=== PATIENT | female | born 1990 | race Caucasian/White ===

== ENCOUNTER 2017-08-09 17:55 | Emergency (ER) | payer BC, MEDICAID ==
[~2017-08-09] VITALS: Ht 157.5 cm; Wt 65.6 kg
[~2017-08-09 17:55] MED LIST: ASCO500T8 PO; BUTA-5 PO; CALC300T5 PO; IBUP200C8 PO; MIGRAINE MEDICINE; PT WILL BRING LIST
[2017-08-09] MEDS ORDERED: SODIUM CHLORIDE 0.9% 1,000ML IVBOLUS ONE (19:00)
[2017-08-09] MEDS ORDERED: SODIUM CHLORIDE FLUSH 10ML SYR IVF ONE (19:00)
[2017-08-09] MEDS ORDERED: METOCLOPRAMIDE 5 MG/ML, 2ML IVPush ONE (19:00)
[2017-08-09] MEDS ORDERED: DIPHENHYDRAMINE 50 MG/ML, 1ML IVPush ONE (19:00)
[2017-08-09 19:10] LABS: HEMATOCRIT 40.7 % (34.6-47.8); HEMOGLOBIN 13.9 g/dL (11.7-16.4); WHITE BLOOD COUNT 10.5 x10^3/uL (3.4-10)
[2017-08-09] MEDS ORDERED: DIPHENHYDRAMINE 50 MG/ML, 1ML ONE (19:10)
[2017-08-09] MEDS ORDERED: METOCLOPRAMIDE 5 MG/ML, 2ML ONE (19:10)
[2017-08-09 19:21] LABS: BLOOD UREA NITROGEN 8 mg/dL (7-18)
[2017-08-09 19:35] LABS: ASPARTATE AMINO TRANSFERASE 10 U/L (15-37)
[2017-08-09 21:00] VITALS: BP 113/64
== END 2017-08-09 21:05 | disposition home or self-care (01) ==
LOC: ED 18:46
DX: O26.892 Other specified pregnancy related conditions, second trimester (principal); O21.0 Mild hyperemesis gravidarum; Z3A.21 21 weeks gestation of pregnancy; R55 Syncope and collapse; R11.0 Nausea
CPT/HCPCS: 36415; 80053; 81003; 84703; 85025; 93005; 96374; 96375; 99285; J1200; J2765; J7030

== ENCOUNTER 2017-09-07 20:55 | Emergency (ER) | payer BC ==
[~2017-09-07] VITALS: Ht 160 cm; Wt 63.8 kg
[2017-09-07] MEDS ORDERED: SODIUM CHLORIDE FLUSH 10ML SYR IVF ONE (22:30)
[2017-09-07] MEDS ORDERED: ONDANSETRON 2MG/ML, 2ML IVPush ONE (22:30)
[2017-09-07] MEDS ORDERED: SODIUM CHLORIDE 0.9% 1,000ML IVBOLUS ONE (22:30)
[2017-09-07 22:52] LABS: HEMATOCRIT 43.4 % (34.6-47.8); HEMOGLOBIN 14.9 g/dL (11.7-16.4); WHITE BLOOD COUNT 10.7 x10^3/uL (3.4-10)
[2017-09-07] MEDS ORDERED: ONDANSETRON 2MG/ML, 2ML ONE (23:00)
[2017-09-07 23:05] LABS: ASPARTATE AMINO TRANSFERASE 10 U/L (15-37); BLOOD UREA NITROGEN 9 mg/dL (7-18)
[2017-09-07] MEDS ORDERED: CEFTRIAXONE PMX 1GM/50ML 50 ML ONE (23:49)
[2017-09-08] MEDS ORDERED: METOCLOPRAMIDE 5 MG/ML, 2ML IVPush ONE
[2017-09-08] MEDS ORDERED: ACETAMINOPHEN 325 MG TABLET ONE
[2017-09-08] MEDS ORDERED: SODIUM CHLORIDE 0.9% 1,000ML IVBOLUS ONE
[2017-09-08] MEDS ORDERED: METOCLOPRAMIDE 5 MG/ML, 2ML ONE
[2017-09-08] MEDS ORDERED: CEFTRIAXONE PMX 1GM/50ML 50 ML IV ONE
[2017-09-08] MEDS ORDERED: ACETAMINOPHEN 325 MG TABLET PO ONE
[2017-09-08] MEDS ORDERED: PROMETHAZINE 25 MG/ML, 1ML ONE (00:12)
[2017-09-08] MEDS ORDERED: PROMETHAZINE 25 MG/ML, 1ML IM STA (00:19)
[2017-09-08 01:18] VITALS: BP 109/75
== END 2017-09-08 01:18 | disposition home or self-care (01) ==
LOC: ED 22:55
DX: O21.0 Mild hyperemesis gravidarum (principal); O23.42 Unspecified infection of urinary tract in pregnancy, second trimester; Z3A.21 21 weeks gestation of pregnancy
CPT/HCPCS: 36415; 80053; 81001; 85025; 87086; 96361; 96365; 96372; 96375; 99284; J0696; J2405; J2550; J7030

== ENCOUNTER 2021-02-09 12:53 | Emergency (ER) | payer BC ==
[~2021-02-09] VITALS: Ht 157.5 cm; Wt 85.2 kg
[~2021-02-09 12:53] MED LIST changes: +DOCU-131 PO; +HYDR-1067 PO; +IBUP-1222 PO; +IBUP-1223 PO
--- NOTE | 2021-02-09 13:57 | NUR ---
MALLORY RN: PT C/O PALPITATIONS. PT ALSO REPORTS SHE IS 17 WEEKS WITH HER 3RD . [employer] ON. SINUS TACHY NOTED. AT BEDSIDE. DR BERG IN ROOM. VS STABLE. CALL LIGHT IN PLACE.
[2021-02-09] MEDS ORDERED: SODIUM CHLORIDE 0.9% 1,000ML IVBOLUS ONE (14:00)
[2021-02-09] MEDS ORDERED: SODIUM CHLORIDE FLUSH 10ML SYR IVF ONE (14:00)
[2021-02-09] MEDS ORDERED: SODIUM CHLORIDE 0.9% 1,000 ML IV ONE (14:00)
[2021-02-09] MEDS ORDERED: PREN1TAB28 PO (14:24)
[2021-02-09 14:44] LABS: BASOPHILS % (AUTO) 0 % (0-1); EOSINOPHILS % (AUTO) 1 % (1-7); LYMPHOCYTES % (AUTO) 15 % (22-44); MEAN CORPUSCULAR HEMOGLOBIN 28.4 pg (27.0-34.8); MEAN CORPUSCULAR HGB CONC 33.9 g/dL (32.4-35.8); MEAN PLATELET VOLUME 7.7 fL (7.4-10.4); MONOCYTES % (AUTO) 4 % (2-9); NEUTROPHILS % (AUTO) 80 % (42-75); PLATELET COUNT 342 x10^3/uL (130-400); RED BLOOD COUNT 4.94 x10^6/uL (3.82-5.3); RED CELL DISTRIBUTION WIDTH 13.7 % (9.6-15.2)
[2021-02-09 14:47] LABS: MICROSCOPIC INDICATED
[2021-02-09 14:49] LABS: MD NO
[2021-02-09 14:52] LABS: ANION GAP 10 mmol/L (5-15); CALCIUM 9.2 mg/dL (8.5-10.1); CHLORIDE 103 mmol/L (98-107); CREATININE 0.51 mg/dL (0.55-1.02)
[2021-02-09 14:53] LABS: ALANINE AMINOTRANSFERASE 31 U/L (12-78); ALBUMIN 3.3 g/dL (3.4-5.0)
[2021-02-09 15:03] LABS: ALKALINE PHOSPHATASE 47 U/L (45-117); BILIRUBIN,TOTAL 0.3 mg/dL (0.2-1.0); T4 (THYROXINE) 11.4 mcg/dL (4.8-13.9); TOTAL PROTEIN 7.8 g/dL (6.4-8.2); TROPONIN I < 0.015 ng/mL (0.000-0.045)
--- NOTE | 2021-02-09 15:32 | NUR ---
PT IS RESTING, DENIES CP OR PALPIATIONS AT THIS TIME. VSS. FAMILY AT BEDSIDE.
[2021-02-09] MEDS ORDERED: OMNIPAQUE 350 MG/ML, 100ML BOTTLE ONE (15:45)
--- NOTE | 2021-02-09 15:54 | NUR ---
PT AMBULATED TO BATHROOM W STEADY GAIT.
--- NOTE | 2021-02-09 16:48 | NUR ---
MD BERG AT BEDSIDE DISCUSSING POC. CONSULTING CARDIOLOGY. PT REPOSTIONED IN BED. VSS.
[2021-02-09 16:56] VITALS: BP 112/68
--- NOTE | 2021-02-09 17:02 | NUR ---
PROVIDED WATER AND CRACKERS.
--- NOTE | 2021-02-09 17:18 | NUR ---
PT HAS CO HIGH HR AND PALPITATIONS. VSS. TO BE CONSULTED BY CARDIOLOGY.
--- NOTE | 2021-02-09 17:54 | NUR ---
Patient/Caregiver given discharge instructions and they have confirmed that they understand the instructions. Patient ambulatory with steady gait.
== END 2021-02-09 18:39 | disposition home or self-care (01) ==
LOC: ED 16:40
DX: O26.892 Other specified pregnancy related conditions, second trimester (principal); R00.0 Tachycardia, unspecified; R00.2 Palpitations; R06.02 Shortness of breath; Z3A.17 17 weeks gestation of pregnancy
CPT/HCPCS: 36415; 71275; 80053; 81001; 83735; 84436; 84443; 84484; 85025; 93005; 96360; 96361; 99285; J7030; Q9967

== ENCOUNTER 2021-06-08 13:45 | Inpatient (IN) | payer BC ==
[~2021-06-08] VITALS: Ht 157.5 cm; Wt 90.5 kg
[~2021-06-08 13:45] MED LIST changes: -HYDR-1067 PO; +HYDR-2214 PO; +PREN1TAB28 PO
[2021-06-08] MEDS ORDERED: MAGNESIUM SULF. PMX 20GM/500ML 500 ML IV SCH (15:00)
[2021-06-08] MEDS ORDERED: PLEASE ENTER HEIGHT AND WEIGHT MC SCH (16:00)
[2021-06-08 16:11] VITALS: BP 127/76
[2021-06-08] MEDS ORDERED: LACTATED RINGERS 1,000 ML IV SCH (17:00)
[2021-06-08] MEDS: ACETAMINOPHEN 325 MG TABLET PO PRN ×2 (18:05→23:25)
[2021-06-08] MEDS: ASPIRIN 81 MG TABLET EC PO SCH (19:12)
[2021-06-08] MEDS ORDERED: OMNIPAQUE 350 MG/ML, 100ML BOTTLE ONE (21:00)
[2021-06-08 22:41] LABS: FIO2 RA %
[2021-06-09 00:13] LABS: FIO2 RA %
[2021-06-09 04:38] VITALS: BP 107/55
[2021-06-09 06:21] LABS: BASOPHILS % (AUTO) 1 % (0-1); EOSINOPHILS % (AUTO) 0 % (1-7); LYMPHOCYTES % (AUTO) 8 % (22-44); MEAN CORPUSCULAR HEMOGLOBIN 25.3 pg (27.0-34.8); MEAN CORPUSCULAR HGB CONC 32.7 g/dL (32.4-35.8); MEAN PLATELET VOLUME 7.8 fL (7.4-10.4); MONOCYTES % (AUTO) 3 % (2-9); NEUTROPHILS % (AUTO) 88 % (42-75); PLATELET COUNT 345 x10^3/uL (130-400); RED BLOOD COUNT 4.04 x10^6/uL (3.82-5.3); RED CELL DISTRIBUTION WIDTH 15.4 % (9.6-15.2)
[2021-06-09 06:33] LABS: ALBUMIN 2.4 g/dL (3.4-5.0); ANION GAP 8 mmol/L (5-15); CALCIUM 9.2 mg/dL (8.5-10.1); CHLORIDE 108 mmol/L (98-107)
[2021-06-09 06:49] LABS: ALANINE AMINOTRANSFERASE 17 U/L (12-78); ALKALINE PHOSPHATASE 75 U/L (45-117); BILIRUBIN,TOTAL 0.3 mg/dL (0.2-1.0); TOTAL PROTEIN 6.4 g/dL (6.4-8.2)
[2021-06-09] MEDS ORDERED: DOCUSATE 100 MG CAPSULE ONE (08:10)
[2021-06-09] MEDS: DOCUSATE 100 MG CAPSULE PO SCH ×2 (08:12→20:37)
[2021-06-09] MEDS: SODIUM CHLORIDE FLUSH 3ML SYRINGE IVF SCH ×2 (09:22→20:37)
[2021-06-09] MEDS ORDERED: BETAMETHASONE 6 MG/ML, 5ML IM ONE (11:30)
[2021-06-09] MEDS: INSULIN LISPRO 100 UNITS/ML, PEN SQ-INSULIN SCH ×2 (12:48→19:14)
[2021-06-09 12:54] LABS: % IRON SATURATION 7 % (20-55); IRON LEVEL 37 mcg/dL (50-170); TOTAL IRON BINDING CAPACITY 568 mcg/dL (250-450)
[2021-06-09] MEDS ORDERED: GUAIFENESIN 100 MG/5 ML, 10ML UDC PO PRN (13:00)
[2021-06-09 13:17] LABS: AMPHETAMINE SCREEN, URINE Negative (Negative); BARBITURATE SCREEN, URINE Negative (Negative); BENZODIAZEPINE SCREEN, URINE Negative (Negative); CANNABINOID SCREEN, URINE Negative (Negative); COCAINE SCREEN, URINE Negative (Negative); METHADONE SCREEN, URINE Negative (Negative); OPIATE SCREEN, URINE Negative (Negative)
[2021-06-09 13:20] LABS: MICROSCOPIC INDICATED
[2021-06-09] MEDS: CEFTRIAXONE 1,000 MG in DEXTROSE 5% 50 ML IVPB SCH (16:25)
[2021-06-09] MEDS: FERROUS GLUCONATE 324 MG TABLET PO SCH (16:53)
[2021-06-09] MEDS: PRENATAL VIT/IRON/FA 1 EACH TABLET PO SCH (20:36)
[2021-06-09] MEDS: ASPIRIN 81 MG TABLET EC PO SCH (20:37)
[2021-06-09] MEDS ORDERED: INSULIN NPH HUMAN 100 UNIT/ML, 3ML VIAL SQ-INSULIN ONE (22:00)
[2021-06-10 07:18] VITALS: BP 124/71
[2021-06-10] MEDS ORDERED: INSULIN LISPRO 100 UNITS/ML, PEN SQ-INSULIN ONE (07:30)
[2021-06-10] MEDS ORDERED: INSULIN NPH HUMAN 100 UNIT/ML, 3ML VIAL SQ-INSULIN ONE ×2 (07:30→21:00)
[2021-06-10] MEDS: ASPIRIN 81 MG TABLET EC PO SCH (07:51)
[2021-06-10] MEDS: DOCUSATE 100 MG CAPSULE PO SCH ×2 (07:51→21:57)
[2021-06-10] MEDS: SODIUM CHLORIDE FLUSH 3ML SYRINGE IVF SCH ×2 (07:52→20:56)
[2021-06-10] MEDS: FERROUS GLUCONATE 324 MG TABLET PO SCH ×2 (07:52→21:57)
[2021-06-10] MEDS: ACETAMINOPHEN 325 MG TABLET PO PRN (08:36)
[2021-06-10 08:59] LABS: O2 FLOW ROOM AIR L/min
[2021-06-10 09:00] LABS: MEAN CORPUSCULAR HEMOGLOBIN 25.2 pg (27.0-34.8); MEAN CORPUSCULAR HGB CONC 32.9 g/dL (32.4-35.8); MEAN PLATELET VOLUME 7.8 fL (7.4-10.4); PLATELET COUNT 372 x10^3/uL (130-400); RED BLOOD COUNT 4.02 x10^6/uL (3.82-5.3); RED CELL DISTRIBUTION WIDTH 15.6 % (9.6-15.2)
[2021-06-10 09:11] LABS: ANION GAP 8 mmol/L (5-15); CALCIUM 8.8 mg/dL (8.5-10.1); CHLORIDE 108 mmol/L (98-107); CREATININE 0.45 mg/dL (0.55-1.02)
[2021-06-10 09:22] LABS: BAND#(MANUAL) 0.77 x10^3/uL; BANDS%(MANUAL) 4 % (0-7); LYMPHS% (MANUAL) 12 % (22-44); MONOS#(MANUAL) 0.58 x10^3/uL (0.3-2.7); MONOS% (MANUAL) 3 % (2-9); SEG#(MANUAL) 15.55 x10^3/uL (1.8-6.8); SEGS% (MANUAL) 81 % (42-75)
[2021-06-10 09:23] LABS: <PLATELET ESTIMATE> ADEQUATE; <PLT MORPHOLOGY> NORMAL PLT MORPH; ANISOCYTOSIS 1+; MICROCYTOSIS 1+
[2021-06-10] MEDS: CEFTRIAXONE 1,000 MG in DEXTROSE 5% 50 ML IVPB SCH (14:35)
[2021-06-10] MEDS ORDERED: INSULIN LISPRO 100 UNIT/ML, 3ML VIAL SQ-INSULIN ONE (18:00)
[2021-06-10 19:00] VITALS: BP 115/71
[2021-06-10] MEDS: PRENATAL VIT/IRON/FA 1 EACH TABLET PO SCH (21:57)
[2021-06-11 06:29] LABS: FIO2 ROOM AIR %
[2021-06-11 06:32] LABS: BASOPHILS % (AUTO) 1 % (0-1); EOSINOPHILS % (AUTO) 0 % (1-7); LYMPHOCYTES % (AUTO) 15 % (22-44); MEAN CORPUSCULAR HEMOGLOBIN 25.1 pg (27.0-34.8); MEAN CORPUSCULAR HGB CONC 32.6 g/dL (32.4-35.8); MEAN PLATELET VOLUME 7.6 fL (7.4-10.4); MONOCYTES % (AUTO) 6 % (2-9); NEUTROPHILS % (AUTO) 78 % (42-75); PLATELET COUNT 367 x10^3/uL (130-400); RED BLOOD COUNT 4.11 x10^6/uL (3.82-5.3)
[2021-06-11 06:40] LABS: ANION GAP 8 mmol/L (5-15); CALCIUM 8.8 mg/dL (8.5-10.1); CHLORIDE 107 mmol/L (98-107)
[2021-06-11 07:17] VITALS: BP 117/76
[2021-06-11] MEDS: ASPIRIN 81 MG TABLET EC PO SCH (09:16)
[2021-06-11] MEDS: DOCUSATE 100 MG CAPSULE PO SCH ×2 (09:16→21:03)
[2021-06-11] MEDS: FERROUS GLUCONATE 324 MG TABLET PO SCH ×2 (09:16→17:12)
[2021-06-11] MEDS: SODIUM CHLORIDE FLUSH 3ML SYRINGE IVF SCH ×2 (09:21→21:03)
[2021-06-11 10:57] VITALS: BP 119/80
[2021-06-11] MEDS: CEFTRIAXONE 1,000 MG in DEXTROSE 5% 50 ML IVPB SCH (14:47)
[2021-06-11 16:24] VITALS: BP 117/73
[2021-06-11] MEDS: ACETAMINOPHEN 325 MG TABLET PO PRN (19:44)
[2021-06-11] MEDS: PRENATAL VIT/IRON/FA 1 EACH TABLET PO SCH (21:03)
[2021-06-12] MEDS: FERROUS GLUCONATE 324 MG TABLET PO SCH ×2 (07:46→17:13)
[2021-06-12] MEDS: ASPIRIN 81 MG TABLET EC PO SCH (07:46)
[2021-06-12] MEDS ORDERED: FLUCONAZOLE 50 MG TABLET PO ONE (08:00)
[2021-06-12] MEDS: DOCUSATE 100 MG CAPSULE PO SCH ×2 (09:20→20:52)
[2021-06-12] MEDS: SODIUM CHLORIDE FLUSH 3ML SYRINGE IVF SCH ×2 (09:20→20:52)
[2021-06-12 09:22] VITALS: BP 114/67
[2021-06-12] MEDS: ACETAMINOPHEN 325 MG TABLET PO PRN (17:13)
[2021-06-12] MEDS: PRENATAL VIT/IRON/FA 1 EACH TABLET PO SCH (20:52)
[2021-06-13] MEDS: FERROUS GLUCONATE 324 MG TABLET PO SCH ×2 (07:35→21:00)
[2021-06-13] MEDS: ASPIRIN 81 MG TABLET EC PO SCH (07:35)
[2021-06-13] MEDS: SODIUM CHLORIDE FLUSH 3ML SYRINGE IVF SCH ×3 (07:35→21:00)
[2021-06-13] MEDS: DOCUSATE 100 MG CAPSULE PO SCH ×2 (09:00→21:00)
[2021-06-13] MEDS: PRENATAL VIT/IRON/FA 1 EACH TABLET PO SCH (21:00)
[2021-06-14 07:38] LABS: FIO2 ROOM AIR %
[2021-06-14] MEDS: ASPIRIN 81 MG TABLET EC PO SCH (07:46)
[2021-06-14] MEDS: DOCUSATE 100 MG CAPSULE PO SCH (07:46)
[2021-06-14] MEDS: FERROUS GLUCONATE 324 MG TABLET PO SCH ×2 (07:46→17:52)
[2021-06-14] MEDS: SODIUM CHLORIDE FLUSH 3ML SYRINGE IVF SCH (09:00)
[2021-06-14] MEDS: ACETAMINOPHEN 325 MG TABLET PO PRN (17:52)
== END 2021-06-14 20:20 | disposition home or self-care (01) | DRG 831 ==
LOC: LDIP 13:45 → LDOP 13:51 → EDSTATUS 13:56
PROVIDERS: ADMIT Obstetrics & Gynecology; ATTEND Obstetrics & Gynecology
DX: O99.513 Diseases of the respiratory system complicating pregnancy, third trimester (principal); J96.01 Acute respiratory failure with hypoxia; O98.513 Other viral diseases complicating pregnancy, third trimester; E87.4 Mixed disorder of acid-base balance; H53.129 Transient visual loss, unspecified eye; O24.410 Gestational diabetes mellitus in pregnancy, diet controlled; O23.43 Unspecified infection of urinary tract in pregnancy, third trimester; O99.413 Diseases of the circulatory system complicating pregnancy, third trimester; Z20.822 Contact with and (suspected) exposure to COVID-19; O26.893 Other specified pregnancy related conditions, third trimester; Z67.91 Unspecified blood type, Rh negative; Z3A.34 34 weeks gestation of pregnancy; O99.353 Diseases of the nervous system complicating pregnancy, third trimester; G43.109 Migraine with aura, not intractable, without status migrainosus; O13.3 Gestational [pregnancy-induced] hypertension without significant proteinuria, third trimester; B34.8 Other viral infections of unspecified site; O99.013 Anemia complicating pregnancy, third trimester; D50.9 Iron deficiency anemia, unspecified; O99.283 Endocrine, nutritional and metabolic diseases complicating pregnancy, third trimester; J06.9 Acute upper respiratory infection, unspecified; I49.8 Other specified cardiac arrhythmias; I47.9 Paroxysmal tachycardia, unspecified; J44.9 Chronic obstructive pulmonary disease, unspecified; K59.00 Constipation, unspecified; O99.613 Diseases of the digestive system complicating pregnancy, third trimester; O36.5930 Maternal care for other known or suspected poor fetal growth, third trimester, not applicable or unspecified; O69.89X0 Labor and delivery complicated by other cord complications, not applicable or unspecified; Z87.891 Personal history of nicotine dependence
CPT/HCPCS: 36415; 36600; 71046; 71275; 80048; 80053; 80307; 81001; 82565; 82570; 82803; 82947; 82962; 83540; 83550; 83605; 83735; 84145; 84156; 84550; 85025; 86328; 86592; 86850; 86900; 87040; 87070; 87081; 87086; 87205; 87486; 87581; 87633; 87798; 93005; 93306; G0378; J0696; J0702; J1815; Q9967; U0005; U0003

== ENCOUNTER 2021-06-27 04:59 | Inpatient (IN) | payer BC ==
[~2021-06-27] VITALS: Ht 157.5 cm; Wt 91.0 kg
[2021-06-27] MEDS ORDERED: ALUMINUM/MAG/SIMETHICONE 30 ML UDC PO PRN (05:30)
[2021-06-27] MEDS ORDERED: METOCLOPRAMIDE 5 MG/ML, 2ML IVPush PRN (05:30)
[2021-06-27] MEDS ORDERED: CALCIUM CARBONATE 500 MG TAB.CHEW PO PRN (05:30)
[2021-06-27] MEDS ORDERED: FENTANYL PF 100 MCG/2ML IVPush PRN (05:30)
[2021-06-27] MEDS ORDERED: D5%-LACTATED RINGERS 1,000 ML IV SCH (05:30)
[2021-06-27] MEDS ORDERED: ONDANSETRON 2MG/ML, 2ML IVPush PRN ×2 (05:30→09:00)
[2021-06-27] MEDS ORDERED: SODIUM CHLORIDE FLUSH 10ML SYR IVF PRN (05:30)
[2021-06-27] MEDS ORDERED: TERBUTALINE 1 MG/ML, 1ML SQ PRN (05:30)
[2021-06-27] MEDS ORDERED: FENTANYL PF 100 MCG/2ML IV PRN (05:30)
[2021-06-27] MEDS ORDERED: SODIUM CITRATE/CITRIC ACID 30 ML UDC PO PRN (05:30)
[2021-06-27] MEDS ORDERED: OXYTOCIN 30U/ 0.9% NaCL 500ML 500 ML IV ONE (05:30)
[2021-06-27] MEDS ORDERED: OXYTOCIN 30U/ 0.9% NaCL 500ML 500 ML IV PRN (05:30)
[2021-06-27] MEDS ORDERED: TERBUTALINE 1 MG/ML, 1ML IVPush PRN (05:30)
[2021-06-27 05:39] VITALS: BP 114/78
[2021-06-27] MEDS: LACTATED RINGERS 1,000 ML IV SCH ×2 (05:47→07:52)
[2021-06-27 05:51] LABS: BASOPHILS % (AUTO) 0 % (0-1); EOSINOPHILS % (AUTO) 1 % (1-7); LYMPHOCYTES % (AUTO) 18 % (22-44); MEAN CORPUSCULAR HEMOGLOBIN 26.9 pg (27.0-34.8); MEAN CORPUSCULAR HGB CONC 33.6 g/dL (32.4-35.8); MEAN PLATELET VOLUME 8.2 fL (7.4-10.4); MONOCYTES % (AUTO) 4 % (2-9); NEUTROPHILS % (AUTO) 77 % (42-75); PLATELET COUNT 298 x10^3/uL (130-400); RED BLOOD COUNT 4.77 x10^6/uL (3.82-5.3)
[2021-06-27 05:56] LABS: ALANINE AMINOTRANSFERASE 19 U/L (12-78); ALBUMIN 2.5 g/dL (3.4-5.0); ANION GAP 9 mmol/L (5-15); CALCIUM 9.2 mg/dL (8.5-10.1); CHLORIDE 107 mmol/L (98-107); CREATININE 0.49 mg/dL (0.55-1.02)
[2021-06-27] MEDS ORDERED: LIDOCAINE 1%, 20ML ONE (05:56)
[2021-06-27] MEDS ORDERED: MISOPROSTOL 200 MCG TABLET ONE (05:56)
[2021-06-27 05:58] LABS: ALKALINE PHOSPHATASE 82 U/L (45-117); BILIRUBIN,TOTAL 0.3 mg/dL (0.2-1.0); TOTAL PROTEIN 6.7 g/dL (6.4-8.2)
[2021-06-27] MEDS ORDERED: PLEASE ENTER HEIGHT AND WEIGHT MC SCH (06:00)
[2021-06-27] MEDS ORDERED: BUPIVACAINE 0.25% ONE (08:51)
[2021-06-27] MEDS ORDERED: FENTANYL/BUPIV./NS/PF 0 ML EPIDCONT ONE (08:51)
[2021-06-27] MEDS ORDERED: LACTATED RINGERS 1,000 ML IVBOLUS PRN (09:00)
[2021-06-27] MEDS ORDERED: LACTATED RINGERS 1,000 ML IV SCH (09:00)
[2021-06-27] MEDS ORDERED: DIPHENHYDRAMINE 50 MG/ML, 1ML IVPush PRN (09:00)
[2021-06-27] MEDS ORDERED: EPHEDRINE 50 MG/ML, 1ML IVPush PRN (09:00)
[2021-06-27] MEDS ORDERED: FENTANYL/BUPIV./NS/PF 250 ML EPIDCONT SCH (09:00)
[2021-06-27] MEDS ORDERED: NALOXONE 0.4 MG/ML, 1ML IVPush PRN (09:00)
[2021-06-27] MEDS ORDERED: MISOPROSTOL 200 MCG TABLET PR PRN (10:30)
[2021-06-27] MEDS ORDERED: OXYcodone/APAP 5/325MG TABLET PO PRN (10:30)
[2021-06-27] MEDS ORDERED: OXYcodone IR 5MG TABLET PO PRN (10:30)
[2021-06-27] MEDS ORDERED: ONDANSETRON 2MG/ML, 2ML IV PRN (10:30)
[2021-06-27] MEDS ORDERED: SIMETHICONE 80 MG CHEW TAB PO PRN (10:30)
[2021-06-27] MEDS ORDERED: ACETAMINOPHEN 325 MG TABLET PO PRN (10:30)
[2021-06-27] MEDS: OXYTOCIN 30U/ 0.9% NaCL 500ML 500 ML IV SCH ×2 (12:04→20:30)
[2021-06-27] MEDS: IBUPROFEN 600 MG TABLET PO PRN ×2 (13:08→19:29)
[2021-06-27 14:40] VITALS: BP 111/69
[2021-06-27 17:22] LABS: BASOPHILS % (AUTO) 1 % (0-1); EOSINOPHILS % (AUTO) 0 % (1-7); LYMPHOCYTES % (AUTO) 15 % (22-44); MEAN CORPUSCULAR HEMOGLOBIN 26.1 pg (27.0-34.8); MEAN CORPUSCULAR HGB CONC 32.3 g/dL (32.4-35.8); MEAN PLATELET VOLUME 7.8 fL (7.4-10.4); MONOCYTES % (AUTO) 7 % (2-9); NEUTROPHILS % (AUTO) 78 % (42-75); PLATELET COUNT 259 x10^3/uL (130-400); RED BLOOD COUNT 4.65 x10^6/uL (3.82-5.3); RED CELL DISTRIBUTION WIDTH 21.7 % (9.6-15.2)
[2021-06-27] MEDS: DOCUSATE 100 MG CAPSULE PO PRN (19:29)
[2021-06-27 19:35] VITALS: BP 117/83
[2021-06-27 23:30] VITALS: BP 107/73
[2021-06-28] MEDS: IBUPROFEN 600 MG TABLET PO PRN ×4 (01:28→20:16)
[2021-06-28 03:20] VITALS: BP 117/77
[2021-06-28] MEDS: OXYTOCIN 30U/ 0.9% NaCL 500ML 500 ML IV SCH ×2 (06:30→16:30)
[2021-06-28 07:04] VITALS: BP 110/78
[2021-06-28] MEDS: PRENATAL VIT/IRON/FA 1 EACH TABLET PO SCH (07:30)
[2021-06-28] MEDS: DOCUSATE 100 MG CAPSULE PO PRN ×2 (07:30→20:16)
[2021-06-28 19:45] VITALS: BP 132/86
[2021-06-29] MEDS: IBUPROFEN 600 MG TABLET PO PRN ×2 (02:14→08:36)
[2021-06-29] MEDS: OXYTOCIN 30U/ 0.9% NaCL 500ML 500 ML IV SCH ×2 (02:30→12:30)
[2021-06-29 08:30] VITALS: BP 131/84
[2021-06-29] MEDS: PRENATAL VIT/IRON/FA 1 EACH TABLET PO SCH (09:00)
[2021-06-29] MEDS ORDERED: IBUP-1222 PO (09:09)
== END 2021-06-29 14:00 | disposition home or self-care (01) | DRG 806 ==
LOC: LDIP 04:59 → 2NW 14:31
PROVIDERS: ADMIT Obstetrics & Gynecology; ATTEND Obstetrics & Gynecology
PROC: 10E0XZZ Delivery of Products of Conception, External Approach (ICD-10-PCS; principal; 2021-06-27)
PROC: 10907ZC Drainage of Amniotic Fluid, Therapeutic from Products of Conception, Via Natural or Artificial Opening (ICD-10-PCS; 2021-06-27)
PROC: 10H07YZ Insertion of Other Device into Products of Conception, Via Natural or Artificial Opening (ICD-10-PCS; 2021-06-27)
PROC: 0HQ9XZZ Repair Perineum Skin, External Approach (ICD-10-PCS; 2021-06-27)
PROC: 3E033VJ Introduction of Other Hormone into Peripheral Vein, Percutaneous Approach (ICD-10-PCS; 2021-06-27)
PROC: 3E0R3BZ Introduction of Anesthetic Agent into Spinal Canal, Percutaneous Approach (ICD-10-PCS; 2021-06-27)
PROC: 00HU33Z Insertion of Infusion Device into Spinal Canal, Percutaneous Approach (ICD-10-PCS; 2021-06-27)
DX: O69.81X0 Labor and delivery complicated by cord around neck, without compression, not applicable or unspecified (principal); E87.1 Hypo-osmolality and hyponatremia; Z37.0 Single live birth; O36.5930 Maternal care for other known or suspected poor fetal growth, third trimester, not applicable or unspecified; Z3A.37 37 weeks gestation of pregnancy; Z20.822 Contact with and (suspected) exposure to COVID-19; O24.420 Gestational diabetes mellitus in childbirth, diet controlled; Z87.891 Personal history of nicotine dependence; O99.284 Endocrine, nutritional and metabolic diseases complicating childbirth; O70.0 First degree perineal laceration during delivery; K59.00 Constipation, unspecified; O99.62 Diseases of the digestive system complicating childbirth
CPT/HCPCS: 36415; 80053; 82570; 82947; 82962; 83615; 84156; 84550; 85025; 86592; 86850; 86900; 87635; G0378; J2405; J3010; J2590; J7120